=== PATIENT | female | born 1960 | race African-American/Black ===

== ENCOUNTER 2023-06-29 20:22 | Emergency (ER) | payer OTHER, MEDICAID ==
[2023-06-29 20:30] VITALS: BP_SYST 120; PULSE 96; RESP 20; TEMP 98; O2SAT 99
[2023-06-29] MEDS ORDERED: NACL 0.9% 1,000 ML IV ONE (20:45)
[2023-06-29 22:29] VITALS: BP_SYST 132; PULSE 88; RESP 18; TEMP 98.4; O2SAT 98
== END 2023-06-29 22:31 | disposition home or self-care (01) ==
LOC: SED 20:22
DX: R46.89 Other symptoms and signs involving appearance and behavior (principal); Z88.8 Allergy status to other drugs, medicaments and biological substances; Z79.899 Other long term (current) drug therapy
CPT/HCPCS: 99283